=== PATIENT | male | born 1990 | race Caucasian/White ===

== ENCOUNTER → 2016-06-09 | Outpatient (CLI) | payer OTHER ==
--- NOTE | 2016-06-09 10:37 | XR ---
EXAMINATION TYPE: XR chest 2V DATE OF EXAM ORDERED: 06/09/2016 10:15 AM HISTORY: J98.4 lung disease. REFERENCE: None. FINDINGS: The lungs are clear. Pleural spaces are clear. Heart size is normal. IMPRESSION: NORMAL CHEST.
== END | disposition home or self-care (01) ==
LOC: RADXRMAIN 10:00
PROVIDERS: ATTEND Family Medicine
DX: J98.4 Other disorders of lung (principal)
CPT/HCPCS: 71020

== ENCOUNTER → 2017-11-11 | Outpatient (CLI) | payer BC ==
--- NOTE | 2017-11-11 16:55 | MR ---
EXAMINATION TYPE: MR lumbar spine wo con DATE OF EXAM: 11/11/2017 COMPARISON: Plain film 01/2013 HISTORY: Radiculopathy lumbar region TECHNIQUE: Multiplanar, multisequence images of the lumbar spine were acquired. L1-L2: Normal disc appearance without desiccation. No herniation, protrusion or disc bulging. No ca nal stenosis is present. Foramina are patent bilaterally. L2-L3: Normal disc appearance without desiccation. No herniation, protrusion or disc bulging. No ca nal stenosis is present. Foramina are patent bilaterally. L3-L4: Normal disc appearance without desiccation. No herniation, protrusion or disc bulging. No ca nal stenosis is present. Foramina are patent bilaterally. L4-L5: Posterior broad-based disc bulge contacts the anterior thecal sac and possibly the proximal S1 nerve roots and extends laterally and encroaches somewhat on the neural foramina. No significant tolu tral canal stenosis. L5-S1: Normal disc appearance without desiccation. No herniation, protrusion or disc bulging. No ca nal stenosis is present. Foramina are patent bilaterally. Lumbar segments are intact. No paraspinal masses are identified. Conus medullaris has a normal appe arance. Suspect a transitional vertebral body at L5. Rudimentary rib suspected at T12. IMPRESSION: Broad-based disc bulge at what is believed to be L4-5, correlate with plain film prior to any interve ntion.
== END | disposition home or self-care (01) ==
LOC: RADMRIMAIN 13:01
PROVIDERS: ATTEND Psychiatry & Neurology Neurology
DX: M51.16 Intervertebral disc disorders with radiculopathy, lumbar region (principal)
CPT/HCPCS: 72148

== ENCOUNTER 2018-01-01 16:01 | Emergency (ER) | payer BC ==
[2018-01-01 16:54] VITALS: BP 129/71; PULSE 69; RESP 18; TEMP 97.8
--- NOTE | 2018-01-01 17:26 | ED ---
General Adult HPI - General Chief complaint: Allergic Reaction Stated complaint: Poss allergic reaction Time Seen by Provider: 01/01/18 17:11 Source: patient, RN notes reviewed Mode of arrival: ambulatory Limitations: no limitations - History of Present Illness Initial comments: Patient is a 27-year-old male who presents the emergency department with complaints of right hand twitching that he believes may be an ALLERGIC reaction. He took his first citalopram for depression. He took a pill this morning and the hand twitching started about an hour and half ago and then stopped on its own. He was unable to talk to the prescribing doctor because the office was closed. He reported that he had shortness of breath prior to arriving at the emergency department which has since resolved without treatment. He also reports one episode of vomiting which he believes was related to taking an antibiotic. Patient denies any recent throat swelling, tongue swelling, chest tightness or pain, fever, chills, back pain, abdominal pain, nausea or vomiting, numbness or tingling, constipation or diarrhea, headaches or visual changes, or any other complaints. Denies any current shortness of breath. - Related Data Home Medications Medication Instructions Recorded Confirmed No Known Home Medications 10/19/14 10/19/14 Allergies Allergy/AdvReac Type Severity Reaction Status Date / Time No Known Allergies Allergy Verified 10/19/14 15:44 Review of Systems ROS Statement: Those systems with pertinent positive or pertinent negative responses have been documented in the HPI. ROS Other: All systems not noted in ROS Statement are negative. Past Medical History Past Medical History: GERD/Reflux, Seizure Disorder Additional Past Medical History / Comment(s): ? seizures- undiagnosed, colitis, SOB with activity, 30 day heart monitor worn recently with no results yet. Hx. of irregular heart rhythm. Back pain. History of Any Multi-Drug Resistant Organisms: None Reported Past Surgical History: Cardiac Ablation Additional Past Surgical History / Comment(s): heart surgery Past Anesthesia/Blood Transfusion Reactions: No Reported Reaction Past Psychological History: Bipolar, Schizophrenia Smoking Status: Former smoker Past Alcohol Use History: None Reported Past Drug Use History: Marijuana - Past Family History Mother Family Medical History: No Reported History General Exam - General Exam Comments Initial Comments: General: Well-developed, well-nourished, no acute distress HEENT: Normocephalic/atraumatic, PERRL, no pharynx erythema, swallowing well, external auditory canals no erythema, no exudates, TMs clear Neck: Supple, nontender, trachea midline Chest/Lungs: Normal respirations, no signs of respiratory distress, clear to auscultation bilaterally, no wheezes, rales, or rhonchi Cardiac: Regular rate and rhythm, normal S1-S2, no murmurs rubs or gallops Abdomen/GI: Soft, nontender, bowel sounds normal x4, no guarding, no rebound Musculoskeletal: Moving all extremities Skin: Warmth, No rashes or lesions, no cyanosis or diaphoresis Neurologic: A&O x 3 Psychiatric: Mood and affect normal, judgment normal Limitations: no limitations Course Vital Signs 01/01/18 16:51 Temperature 97.8 F Pulse Rate 69 Respiratory 18 Rate Blood Pressure 129/71 O2 Sat by Pulse 98 Oximetry Medical Decision Making - Medical Decision Making This is a 27-year-old male who presents the emergency department with hand twitching after taking his antidepressant. He currently does not have any ALLERGIC reaction symptoms or anaphylaxis symptoms. Vital signs are within normal limits. Will discharge him home. Will recommend that he follows up with the doctor who prescribes his antidepressant. Case discussed in detail with attending physician Dr. Mcguire. Disposition Clinical Impression: Adverse reaction to drug Disposition: HOME SELF-CARE Condition: Good Instructions: Adverse Drug Reaction (ED) Additional Instructions: Follow-up with PCP in 2 days. Return to emergency department if any difficulty breathing, throat or tongue swelling, or chest tightness. Follow-up with the physician prescribing the antidepressant soon as possible. Is patient prescribed a controlled substance at d/c from ED?: No Referrals: Dave Marte MD [Primary Care Provider] - 1-2 days Time of Disposition: 18:05
== END 2018-01-01 18:19 | disposition home or self-care (01) ==
LOC: EC 16:01
DX: R25.3 Fasciculation (principal); R11.10 Vomiting, unspecified; T43.225A Adverse effect of selective serotonin reuptake inhibitors, initial encounter; Z87.891 Personal history of nicotine dependence
CPT/HCPCS: 99282

== ENCOUNTER → 2018-01-05 | Outpatient (CLI) | payer BC ==
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
== END | disposition home or self-care (01) ==
LOC: RADMRIMAIN 11:25
PROVIDERS: ATTEND Psychiatry & Neurology Neurology
DX: R20.2 Paresthesia of skin (principal); Z87.820 Personal history of traumatic brain injury
CPT/HCPCS: 70553; A9585

== ENCOUNTER → 2018-05-31 | Outpatient (CLI) | payer BC ==
[2018-05-31 14:25] LABS: Basophils % (A) 1 %; Eosinophils # (A) 0.1 k/uL (0-0.7); Eosinophils % (A) 1 %; HCT 48.3 % (39.0-53.0); Lymphocytes # (A) 1.5 k/uL (1.0-4.8); Lymphocytes % (A) 21 %; MCHC 33.1 g/dL (31.0-37.0); MCV 87.8 fL (80.0-100.0); Mean Platelet Volume 8.2; Monocytes # (A) 0.5 k/uL (0-1.0); Monocytes % (A) 7 %; Neutrophils # (A) 4.8 k/uL (1.3-7.7); Neutrophils % (A) 68 %; Platelet Count 196 k/uL (150-450); RDW 12.7 % (11.5-15.5)
== END ==
LOC: LABWHC1 13:32
PROVIDERS: ATTEND Family Medicine
DX: B89 Unspecified parasitic disease (principal)
CPT/HCPCS: 36415; 85025

== ENCOUNTER → 2018-06-25 | Outpatient (CLI) | payer BC, OTHER ==
[2018-06-25 13:38] LABS: Anion Gap 7 mmol/L; Blood Urea Nitrogen 12 mg/dL (9-20); Carbon Dioxide 25 mmol/L (22-30); Chloride 109 mmol/L (98-107); Glucose 87 mg/dL (74-99); Potassium 4.7 mmol/L (3.5-5.1); Sodium 141 mmol/L (137-145)
== END | disposition home or self-care (01) ==
LOC: LABPAT 11:48
PROVIDERS: ATTEND Internal Medicine Clinical Cardiac Electrophysiology
DX: Z01.812 Encounter for preprocedural laboratory examination (principal); I47.1 Supraventricular tachycardia
CPT/HCPCS: 80051; 82565; 82947; 83735; 84520

== ENCOUNTER 2018-06-29 15:16 | Day surgery (SDC) | payer BC, OTHER ==
[2018-06-29] MEDS: SODIUM CHLORIDE 0.9% 1,000 ML IV SCH ×3 (15:54→21:07)
[2018-06-29] MEDS ORDERED: MIDAZOLAM 2 MG/2 ML VIAL ONE (18:53)
[2018-06-29] MEDS ORDERED: diphenhydrAMINE 50 MG/ML 1 ML VIAL ONE (18:53)
[2018-06-29] MEDS ORDERED: ONDANSETRON 4 MG/2 ML VIAL ONE (18:53)
[2018-06-29] MEDS ORDERED: fentaNYL (PF) 50 MCG/ML 2 ML AMP ONE (18:53)
[2018-06-29] MEDS ORDERED: LIDOCAINE 1% INJ 10MG/ML (20 ML MDV) ONE (19:15)
[2018-06-29] MEDS ORDERED: LIDOCAINE 1% INJ 10MG/ML (20 ML MDV) SQ ONE (19:16)
[2018-06-29] MEDS ORDERED: ACETAMINOPHEN TAB 325 MG TAB PO PRN (19:51)
[2018-06-29] MEDS ORDERED: ACETAMINOPHEN IV (For NPO) 1,000 MG in EMPTY BAG 1 BAG IVPB ONE (19:51)
[2018-06-29] MEDS ORDERED: HYDROcodone/APAP 5-325MG 1 EACH TAB PO PRN (19:51)
[2018-06-29] MEDS ORDERED: LORazepam 1 MG TAB PO PRN (19:53)
[2018-06-29 21:01] VITALS: BMI 27.9
--- NOTE | 2018-06-29 21:03 | PCN ---
PROCEDURE NOTE Rich Knutson is a 27-year-old male patient who complains of recurrent palpitations and dizziness. 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 He is brought in for a diagnostic EP study to see if he has any inducible arrhythmias. Patient was brought to the EP lab in a fasting state. Written informed consent was obtained prior to the procedure. The right groin was prepped and draped as per protocol. Lidocaine 1% was used for local anesthesia. Three venous sheaths were placed the right femoral vein. Diagnostic catheters were placed in the high right atrium, His bundle, RV and later in the coronary sinus. Sinus cycle length 794 milliseconds, AL interval 193 milliseconds, QRS 101 milliseconds, QT 395 milliseconds. AH interval 74 milliseconds, HV interval 39 milliseconds. Sinus node recovery times at 600, 500 and 400 milliseconds were 1605, 1421 and 1096 milliseconds. A prolonged corrected sinus node recovery time was noted at a paced cycle length of 600 milliseconds. No slow pathway conduction. No delta waves noted. AV node Wenckebach block 470 milliseconds. There was no VA conduction noted with pacing the right ventricle in the baseline state. Isuprel was started at a high dose and then at 5 mcg. VA Wenckebach block improved to 390 milliseconds noted with concentric activation. AV node Wenckebach block improved to 290 milliseconds. Atrial ERP 600/290 milliseconds. Para Hisian pacing revealed a daysi response. Burst stimulation was performed from the coronary sinus and from the high right atrium. Extrastimulation was performed from the high right atrium. Ventricular pacing was performed. Activation remained concentric throughout. There was no evidence for any accessory pathway conduction. All catheters were then removed at the end of the procedure and patient was transferred back to telemetry. RESULTS: 1. Diagnostic EP study revealing a prolonged corrected corrected sinus node recovery time. 2. No evidence of slow pathway conduction. No evidence for accessory pathway conduction. No inducible arrhythmias on and off Isuprel. MMODL / IJN: [id number] /
[2018-06-29] MEDS: LACTATED RINGERS 1,000 ML IV SCH ×2 (21:05→21:10)
[2018-06-29] MEDS: DIAZEPAM 5 MG TAB PO SCH ×2 (21:35→21:36)
[2018-06-30] MEDS: SODIUM CHLORIDE 0.9% 1,000 ML IV SCH (04:20)
[2018-06-30 04:44] VITALS: RESP 18
[2018-06-30 07:13] VITALS: BP 108/65; PULSE 50; TEMP 97.6
--- NOTE | 2018-06-30 07:16 | P.DS ---
Providers Attending physician: Gregorio Hunter Primary care physician: [facility] Course: Patient is doing well. He has no chest discomfort dizziness lightheadedness. He had a comfortable night. 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 Patient complaining of recurrent palpitations Diagnostic EP study did not show any evidence for any inducible arrhythmias both on and off Isuprel Plan discharge home and follow-up in the office in about 2 weeks for a groin check Patient Condition at Discharge: Stable Plan - Discharge Summary Discharge Rx Participant: No New Discharge Prescriptions: No Action Vortioxetine Hydrobromide [Trintellix] 10 mg PO DAILY Omeprazole [PriLOSEC] 20 mg PO AC-BRKFST Diclofenac Potassium [Cataflam] 100 mg PO BID diphenhydrAMINE [Benadryl] 100 mg PO HS Discharge Medication List Diclofenac Potassium [Cataflam] 100 mg PO BID 06/24/18 [History] Omeprazole [PriLOSEC] 20 mg PO AC-BRKFST 06/24/18 [History] Vortioxetine Hydrobromide [Trintellix] 10 mg PO DAILY 06/24/18 [History] diphenhydrAMINE [Benadryl] 100 mg PO HS 06/24/18 [History]
[2018-06-30] MEDS ORDERED: PANTOPRAZOLE 40 MG TABLET PO SCH (07:30)
[2018-06-30] MEDS ORDERED: VORTIOXETINE HYDROBROMIDE 10 MG TABLET PO SCH (09:00)
== END 2018-06-30 11:35 | disposition home or self-care (01) ==
LOC: CATHEP 15:16 → 1SOBS 19:58 → CATHEP 06-30 11:35
PROVIDERS: ATTEND Internal Medicine Clinical Cardiac Electrophysiology
DX: I47.1 Supraventricular tachycardia (principal); R00.2 Palpitations; R55 Syncope and collapse; Z82.49 Family history of ischemic heart disease and other diseases of the circulatory system; Z72.0 Tobacco use
CPT/HCPCS: 93623; 93620; C1894; C1769 ×2; C1730 ×3; J2250; J1200; J2405; J2001; J3010

== ENCOUNTER 2018-08-02 11:07 | Emergency (ER) | payer OTHER, BC ==
[2018-08-02 11:29] VITALS: RESP 18; TEMP 98.3
[2018-08-02] MEDS ORDERED: SODIUM CHLORIDE 0.9% 1,000 ML IV STA (11:29)
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
[2018-08-02 11:51] LABS: Basophils # (A) 0.1 k/uL (0-0.2); Basophils % (A) 1 %; Eosinophils # (A) 0.2 k/uL (0-0.7); Eosinophils % (A) 3 %; HGB 16.6 gm/dL (13.0-17.5); Lymphocytes # (A) 1.6 k/uL (1.0-4.8); Lymphocytes % (A) 26 %; MCH 29.3 pg (25.0-35.0); MCHC 33.2 g/dL (31.0-37.0); MCV 88.2 fL (80.0-100.0); Mean Platelet Volume 7.8; Monocytes # (A) 0.4 k/uL (0-1.0); Monocytes % (A) 6 %; Neutrophils % (A) 63 %; Platelet Count 150 k/uL (150-450); RBC 5.66 m/uL (4.30-5.90); RDW 14.1 % (11.5-15.5); WBC 6.3 k/uL (3.8-10.6)
--- NOTE | 2018-08-02 11:59 | XR ---
EXAMINATION TYPE: XR chest 2V DATE OF EXAM: 08/02/2018 COMPARISON: Prior chest x-ray 06/09/2016 HISTORY: Syncope TECHNIQUE: Frontal and lateral views of the chest are obtained. FINDINGS: There is no focal air space opacity, pleural effusion, or pneumothorax seen. The cardiac silhouette size is within normal limits. The osseous structures are intact. There are overlying car diac leads. IMPRESSION: No acute cardiopulmonary process.
[2018-08-02 12:02] LABS: ALT 19 U/L (21-72); AST 26 U/L (17-59); Albumin 4.5 g/dL (3.5-5.0); Alkaline Phosphatase 64 U/L (38-126); Anion Gap 6 mmol/L; Blood Urea Nitrogen 11 mg/dL (9-20); Calcium 9.7 mg/dL (8.4-10.2); Carbon Dioxide 22 mmol/L (22-30); Chloride 113 mmol/L (98-107); Glucose 105 mg/dL (74-99); Magnesium 1.7 mg/dL (1.6-2.3); Potassium 4.4 mmol/L (3.5-5.1); Sodium 141 mmol/L (137-145); Total Bilirubin 0.5 mg/dL (0.2-1.3); Total Protein 7.3 g/dL (6.3-8.2)
[2018-08-02 12:09] LABS: INR 0.9 (<1.2); Partial Thromboplastin Time 23.3 sec (22.0-30.0); Prothrombin Time 9.9 sec (9.0-12.0)
[2018-08-02 12:25] LABS: Appearance,Urine Clear (Clear); Bilirubin,Urine Negative (Negative); Blood,Urine Negative (Negative); Color,Urine Yellow; Glucose,Urine (UA) Negative (Negative); Ketones,Urine Negative (Negative); Leukocyte Esterase,Urine Negative (Negative); Nitrite,Urine Negative (Negative); PH, Urine 7.5 (5.0-8.0); Protein,Urine Negative (Negative); Specific Gravity,Urine 1.019 (1.001-1.035); Urobilinogen,Urine <2.0 mg/dL (<2.0)
[2018-08-02 13:43] VITALS: BP 113/76; PULSE 71
== END 2018-08-02 13:43 | disposition home or self-care (01) ==
LOC: EC 11:07
DX: E86.0 Dehydration (principal); R55 Syncope and collapse; Z53.20 Procedure and treatment not carried out because of patient's decision for unspecified reasons; K21.9 Gastro-esophageal reflux disease without esophagitis; F31.9 Bipolar disorder, unspecified; F17.200 Nicotine dependence, unspecified, uncomplicated; Z79.899 Other long term (current) drug therapy; Z95.5 Presence of coronary angioplasty implant and graft
CPT/HCPCS: 36415; 71046; 80053; 81003; 83735; 84484; 85025; 85610; 85730; 93005; 96360; 99285

== ENCOUNTER → 2021-02-28 | Outpatient (CLI) | payer BC ==
[2021-02-28 12:37] LABS: ALT 17 U/L (4-49); AST 30 U/L (17-59); African American GFR (CKD) >90 (>60 ml/min/1.73 sqM); Albumin 4.3 g/dL (3.5-5.0); Albumin/Globulin Ratio 1.4; Alkaline Phosphatase 78 U/L (38-126); Anion Gap 5 mmol/L; Blood Urea Nitrogen 10 mg/dL (9-20); Calcium 9.1 mg/dL (8.4-10.2); Carbon Dioxide 29 mmol/L (22-30); Chloride 105 mmol/L (98-107); Glucose 104 mg/dL (74-99); Non-African American GFR(CKD) >90 (>60 ml/min/1.73 sqM); Potassium 4.3 mmol/L (3.5-5.1); Sodium 139 mmol/L (137-145); Total Bilirubin 0.6 mg/dL (0.2-1.3); Total Protein 7.3 g/dL (6.3-8.2)
== END | disposition home or self-care (01) ==
LOC: LABWHC1 12:03
PROVIDERS: ATTEND Family Medicine
DX: R10.10 Upper abdominal pain, unspecified (principal)
CPT/HCPCS: 36415; 80053